=== PATIENT | female | born 1980 | race Caucasian/White ===

== ENCOUNTER 2018-06-30 10:41 | Inpatient (IN) | payer SELFPAY ==
[2018-06-30] VITALS (98 sets, daily range): BP systolic 139–151; BP diastolic 96–100; PULSE 83–96; TEMP 98.1; O2SAT 92–100
[~2018-06-30] VITALS: Ht 165.1 cm; Wt 129.8 kg
[2018-06-30 11:39] LABS: BASO # 0.1 (0.0-0.2); BASO % 0.7 % (0.0-2.0); EOS # 0.3 (0.0-0.7); EOS % 4.1 % (0-4.0); GRAN # 3.8 (1.4-6.5); GRAN % 55.1 % (42.2-75.2); HEMATOCRIT 40.5 % (37.0-47.0); LYMPH # 2.4 (1.2-3.4); LYMPH % 34.3 % (20.0-51.0); MEAN CELL VOLUME 85 fl (80.0-100.0); MEAN CORPUSCULAR HEMOGLOBIN 29 pg (27.0-31.0); MEAN CORPUSCULAR HGB CONC 35 g/dl (33.0-37.0); MEAN PLATELET VOLUME 11.4 fl (7.4-10.4); MONO # 0.4 (0.1-0.6); MONO % 5.5 % (1.7-9.3); PLATELET COUNT 240 K/mm3 (130-400); RED BLOOD COUNT 4.78 M/mm3 (4.10-5.30); REDCELL DISTRIBUTION WIDTH-CV 13.1 % (11.5-14.5)
[2018-06-30 11:53] LABS: ALBUMIN 3.8 gm/dL (3.5-5.0); BILIRUBIN,TOTAL 0.4 mg/dL (0.0-1.0); CALCIUM 9.3 mg/dL (8.4-10.2); CREATININE, serum 0.35 mg/dL (0.52-1.25); POTASSIUM 4.2 mmol/L (3.4-5.0)
[2018-06-30 13:06] LABS: COLLECTION METHOD CLEAN CATCH
[2018-06-30 13:19] LABS: PH 6 (5-8); SQUAMOUS EPITHELIAL 0-2 /hpf; URINE APPEARANCE Clear; URINE BACTERIA None Seen /hpf; URINE BILIRUBIN Negative (NEGATIVE); URINE BLOOD Negative (NEGATIVE); URINE COLOR Straw; URINE GLUCOSE 3+ (NEGATIVE); URINE KETONE Trace (NEGATIVE); URINE LEUKOCYTE ESTERASE Negative (NEGATIVE); URINE NITRATE Negative (NEGATIVE); URINE PROTEIN(semi-quant) Negative (NEGATIVE); URINE RBC 0-2 /hpf; URINE UROBILINOGEN Negative (NEGATIVE)
[2018-06-30 17:28] LABS: ARTERIAL BLD GAS O2 SATURATION 97.7 % (92-100); ARTERIAL BLD GAS TCO2 CT 22.4; ARTERIAL BLOOD GAS BASE EXCESS 0.7 (-2-2); ARTERIAL BLOOD GAS HCO3 21.6 meq/L (22-26); ARTERIAL BLOOD GAS PCO2 25.8 mmHg (35-45); ARTERIAL BLOOD GAS PO2 101.4 mmHg (80-100); ARTERIAL BLOOD GAS pH 7.54 (7.35-7.45)
[2018-06-30 17:55] LABS: CALCIUM 9.1 mg/dL (8.4-10.2); CREATININE, serum 0.38 mg/dL (0.52-1.25); POTASSIUM 3.9 mmol/L (3.4-5.0)
[2018-07-01] VITALS (292 sets, daily range): BP systolic 118–162; BP diastolic 75–95; PULSE 68–104; TEMP 97.7–98.7; O2SAT 94–100
[2018-07-01 05:54] LABS: BASO % 0.6 % (0.0-2.0); EOS # 0.3 (0.0-0.7); EOS % 4.7 % (0-4.0); GRAN # 3.4 (1.4-6.5); GRAN % 52.5 % (42.2-75.2); HEMATOCRIT 38.8 % (37.0-47.0); HEMOGLOBIN 12.9 g/dl (12.5-16.0); LYMPH # 2.4 (1.2-3.4); MEAN CELL VOLUME 87 fl (80.0-100.0); MEAN CORPUSCULAR HEMOGLOBIN 29 pg (27.0-31.0); MEAN CORPUSCULAR HGB CONC 33 g/dl (33.0-37.0); MEAN PLATELET VOLUME 11.2 fl (7.4-10.4); MONO # 0.3 (0.1-0.6); MONO % 4.9 % (1.7-9.3); PLATELET COUNT 223 K/mm3 (130-400); RED BLOOD COUNT 4.45 M/mm3 (4.10-5.30); REDCELL DISTRIBUTION WIDTH-CV 13.2 % (11.5-14.5)
[2018-07-01 06:11] LABS: ALBUMIN 3.3 gm/dL (3.5-5.0); BILIRUBIN,TOTAL 0.5 mg/dL (0.0-1.0); CALCIUM 8.4 mg/dL (8.4-10.2); CHOLESTEROL RISK RATIO 7.4; CREATININE, serum 0.39 mg/dL (0.52-1.25); POTASSIUM 3.8 mmol/L (3.4-5.0); TOTAL PROTEIN 6.2 gm/dL (6.4-8.2)
[2018-07-02 00:04] VITALS: BP 146/93; PULSE 94; TEMP 98.5
[2018-07-02 04:07] VITALS: BP 132/79; PULSE 97; TEMP 98.1
[2018-07-02 07:41] VITALS: BP 138/83; PULSE 98; TEMP 98.3
[2018-07-02 12:01] VITALS: BP 140/90; PULSE 90; TEMP 98.3
[2018-07-02] MEDS ORDERED: GLUCOTROL10 MG PO (13:38)
[2018-07-02] MEDS ORDERED: GLUCOPHAGE1000 MG PO (13:39)
== END 2018-07-02 15:02 | disposition home or self-care (01) | DRG 638 ==
LOC: COL.ER 10:41 → ICU 13:11 → MEDICAL 07-01 16:00 → ICU 07-01 16:00 → MEDICAL 07-01 16:00
PROVIDERS: Family Medicine; Nurse Practitioner Family
DX: E11.00 Type 2 diabetes mellitus with hyperosmolarity without nonketotic hyperglycemic-hyperosmolar coma (NKHHC) (principal); E87.1 Hypo-osmolality and hyponatremia; E11.65 Type 2 diabetes mellitus with hyperglycemia; F17.210 Nicotine dependence, cigarettes, uncomplicated; R74.0 Nonspecific elevation of levels of transaminase and lactic acid dehydrogenase [LDH]; R06.00 Dyspnea, unspecified
CPT/HCPCS: 99233-AI; 99239; J1650; J1815; J2405; J3010; J7030; Q9967

== ENCOUNTER → 2020-11-04 | Outpatient (CLI) | payer MEDICAID ==
[~2020-11-04] MED LIST: GLUCOPHAGE1000 MG PO; GLUCOTROL10 MG PO
== END ==
LOC: MHCPAIN 10:47
DX: M47.817 Spondylosis without myelopathy or radiculopathy, lumbosacral region (principal); M53.3 Sacrococcygeal disorders, not elsewhere classified; M54.5 Low back pain; G89.29 Other chronic pain
CPT/HCPCS: G0463

== ENCOUNTER → 2021-01-12 | Outpatient (CLI) | payer MEDICAID ==
[~2021-01-12] MED LIST changes: +CATAPRES0.2 MG PO; +NEURONTIN300 MG/CAP PO; +PRINIVIL40 MG PO
== END ==
LOC: COL.RAD 09:51
DX: M48.02 Spinal stenosis, cervical region (principal); I67.82 Cerebral ischemia; J32.0 Chronic maxillary sinusitis

== ENCOUNTER 2021-01-26 08:58 | Outpatient (CLI) | payer MEDICAID ==
[~2021-01-26] VITALS: Ht 165.1 cm; Wt 136.0 kg
[2021-01-26] VITALS (7 sets, daily range): BP systolic 144–167; BP diastolic 89–102; PULSE 87–95
[2021-01-26 10:14] LABS: CSF APPEARANCE CLEAR; CSF COLOR COLORLESS
[2021-01-26 10:15] LABS: CSF RBC 0 /mm3 (0-0)
[2021-01-26 10:21] LABS: GLUCOSE,CSF 126 mg/dL (40-70); TOTAL PROTEIN,CSF 52 mg/dL (15-45)
[2021-01-26 10:57] LABS: CSF MONONUCLEAR 100 % (70-100); CSF POLYMORPHONUCLEAR 0 % (0-6)
--- NOTE | 2021-01-26 11:20 | NUR ---
Steady gait with cane to restroom following 1 hr flat time. DC instructions reviewed, pt expresses understanding. Bandaid to lower back remains clean, dry and intact. She has tolerated PO fluids without issue. She is assisted out by wheelchair to boyfriend's car.
[2021-01-29 15:19] LABS: CSF OLIG BD INTERPRETATION 0 bands (<2); SE OLIGOCLONAL BANDING 2 bands (())
== END 2021-01-26 11:20 | disposition home or self-care (01) ==
LOC: COL.RAD 08:58
PROVIDERS: Nurse Practitioner
DX: R90.82 White matter disease, unspecified (principal); R42 Dizziness and giddiness; R20.0 Anesthesia of skin

== ENCOUNTER → 2021-02-10 | Outpatient (CLI) | payer MEDICAID | LOC: COL.CARD 12:46 | DX: R42 Dizziness and giddiness (principal); G43.019 Migraine without aura, intractable, without status migrainosus; R20.0 Anesthesia of skin ==

== ENCOUNTER 2021-06-16 13:58 | Outpatient (RCR) | payer MEDICAID | END 2021-09-14 | disposition home or self-care (01) | LOC: WSST | DX: R47.9 Unspecified speech disturbances (principal) ==

== ENCOUNTER 2023-03-05 20:56 | Emergency (ER) | payer MEDICAID ==
[~2023-03-05] VITALS: Ht 162.6 cm; Wt 127.3 kg
[2023-03-05 21:03] VITALS: TEMP 98.3
[2023-03-05 21:42] LABS: BASO % 0.4 % (0.0-2.0); EOS # 0.5 K/mm3 (0.0-0.7); EOS % 5.4 % (0.0-4.0); GRAN # 5.6 K/mm3 (1.4-6.5); HEMATOCRIT 47.1 % (37.0-47.0); HEMOGLOBIN 15.9 g/dl (12.5-16.0); LYMPH # 3.4 K/mm3 (1.2-3.4); LYMPH % 33.9 % (20.0-51.0); MEAN CELL VOLUME 95 fl (80.0-100.0); MEAN CORPUSCULAR HEMOGLOBIN 32 pg (27-31); MEAN CORPUSCULAR HGB CONC 34 g/dl (33.0-37.0); MEAN PLATELET VOLUME 10.7 fl (7.4-10.4); MONO # 0.4 K/mm3 (0.1-0.6); PLATELET COUNT 214 K/mm3 (130-400); RED BLOOD COUNT 4.94 M/mm3 (4.10-5.30); REDCELL DISTRIBUTION WIDTH-CV 12.7 % (11.5-14.5)
[2023-03-05 21:59] LABS: ALANINE AMINOTRANSFERASE 16 U/L (0-55); ALBUMIN 3.8 gm/dL (3.5-5.0); ALKALINE PHOSPHATASE 80 U/L (40-150); ANION GAP 13 mmol/L (7-16); AST,SGOT 10 U/L (5-34); BILIRUBIN,TOTAL 0.3 mg/dL (0.2-1.2); BLOOD UREA NITROGEN 7 mg/dL (7-19); CALCIUM 9.5 mg/dL (8.4-10.2); CARBON DIOXIDE 22 mmol/L (22-29); CHLORIDE 104 mmol/L (98-107); CREATININE, serum 0.66 mg/dL (0.57-1.11); GLUCOSE 232 mg/dL (70-99); POTASSIUM 3.5 mmol/L (3.5-4.5); SODIUM 139 mmol/L (136-145); TOTAL PROTEIN 7.1 gm/dL (6.2-8.1)
[2023-03-05 22:01] LABS: ACETONE,SERUM NEGATIVE
[2023-03-05 22:13] LABS: COLLECTION METHOD CLEAN CATCH
[2023-03-05 22:26] LABS: MUCOUS Present (NOT PRESENT); URINE BACTERIA Rare /hpf (NONE SEEN)
[2023-03-05 22:29] LABS: URINE APPEARANCE Clear (CLEAR/HAZY); URINE BLOOD Negative (NEGATIVE); URINE COLOR Yellow (YELLOW); URINE GLUCOSE 3+ (NEGATIVE); URINE KETONE Negative (NEGATIVE); URINE NITRATE Negative (NEGATIVE); URINE PROTEIN(semi-quant) Negative (NEGATIVE)
[2023-03-05 22:46] VITALS: BP 105/66; PULSE 88
== END 2023-03-05 22:48 | disposition home or self-care (01) ==
LOC: COL.ER 20:56
PROVIDERS: Physician Assistant
DX: R42 Dizziness and giddiness (principal); R51.9 Headache, unspecified; E66.9 Obesity, unspecified; Z68.42 Body mass index [BMI] 45.0-49.9, adult; Z86.69 Personal history of other diseases of the nervous system and sense organs
CPT/HCPCS: J1790; J1885; J2405; J7030

== ENCOUNTER 2024-03-03 21:09 | Emergency (ER) | payer MEDICAID ==
[~2024-03-03] VITALS: Ht 162.6 cm; Wt 118.2 kg
[~2024-03-03 21:09] MED LIST changes: +AMBIEN 5MG TABLE5 MG PO; +AMITRIPTYLINE H25 M1; +ASPIRIN 81M81 MG/TA2 PO; +CLARITIN 1010 MG/TAB; +CYMBALTA 60MG60 MG PO; +FARXIGA10 PO; +IBU800 M1 PO; +LANTUS100 U/ML SQ; +LIPITOR20 MG PO; +LYRICA 25MG CAP25 MG PO; +MAG-OX 400400 MG/TAB PO; +NORCO 325 MG-51 TAB; +PROTONIX 40MG T40 MG PO; +ROBAXIN 75750 MG/TAB PO; +ULTRAM 50MG TAB50 MG PO; +VALIUM 10MG10 MG/TAB; +VICTOZA6 MG/ML SQ
[2024-03-03 21:14] VITALS: TEMP 98.3
[2024-03-03 22:04] LABS: BASO % 0.4 % (0.0-2.0); EOS # 0.5 K/mm3 (0.0-0.7); EOS % 5.1 % (0.0-4.0); HEMOGLOBIN 14.9 g/dl (12.5-16.0); LYMPH # 3.3 K/mm3 (1.2-3.4); LYMPH % 31.8 % (20.0-51.0); MEAN CELL VOLUME 92 fl (80.0-100.0); MEAN CORPUSCULAR HEMOGLOBIN 32 pg (27-31); MEAN CORPUSCULAR HGB CONC 35 g/dl (33.0-37.0); MEAN PLATELET VOLUME 9.9 fl (7.4-10.4); MONO # 0.5 K/mm3 (0.1-0.6); MONO % 4.5 % (1.7-9.3); PLATELET COUNT 264 K/mm3 (130-400); RED BLOOD COUNT 4.69 M/mm3 (4.10-5.30); REDCELL DISTRIBUTION WIDTH-CV 12.4 % (11.5-14.5)
[2024-03-03 22:20] LABS: ERYTHROCYTE SEDIMENTATION RATE 10 mm/hr (0-20)
[2024-03-03 22:28] LABS: ALBUMIN 3.4 g/dL (3.5-5.0); BILIRUBIN,TOTAL 0.3 mg/dL (0.2-1.2); C-REACTIVE PROTEIN 1.59 mg/dL (0.00-0.50); CALCIUM 9.3 mg/dL (8.4-10.2); CREATININE, serum 0.7 mg/dL (0.57-1.11); POTASSIUM 3.6 mEq/L (3.5-4.5); TOTAL PROTEIN 6.7 g/dl (6.2-8.1)
[2024-03-03 23:29] VITALS: BP 133/77; PULSE 83
== END 2024-03-03 23:32 | disposition home or self-care (01) ==
LOC: COL.ER 21:09
PROVIDERS: Emergency Medicine
DX: T81.31XA Disruption of external operation (surgical) wound, not elsewhere classified, initial encounter (principal); E11.65 Type 2 diabetes mellitus with hyperglycemia; L03.116 Cellulitis of left lower limb; F17.210 Nicotine dependence, cigarettes, uncomplicated; Z79.4 Long term (current) use of insulin

== ENCOUNTER 2024-08-12 12:49 | Emergency (ER) | payer MEDICAID ==
[~2024-08-12] VITALS: Ht 162.6 cm; Wt 122.7 kg
[2024-08-12 12:59] VITALS: TEMP 98.3
[2024-08-12] MEDS ORDERED: HYDROcodone/Acetaminophen 7.5-325 MG TAB PO ONE (13:30)
[2024-08-12] MEDS ORDERED: NS 1,000 ML IV ONE (13:30)
[2024-08-12 13:35] LABS: BASO % 0.4 % (0.0-2.0); EOS # 0.4 K/mm3 (0.0-0.7); EOS % 3.9 % (0.0-4.0); GRAN # 6.2 K/mm3 (1.4-6.5); GRAN % 63.4 % (42.2-75.2); HEMATOCRIT 44.7 % (37.0-47.0); HEMOGLOBIN 15.7 g/dl (12.5-16.0); LYMPH # 2.7 K/mm3 (1.2-3.4); LYMPH % 27.6 % (20.0-51.0); MEAN CELL VOLUME 92 fl (80.0-100.0); MEAN CORPUSCULAR HEMOGLOBIN 32 pg (27-31); MEAN CORPUSCULAR HGB CONC 35 g/dl (33.0-37.0); MEAN PLATELET VOLUME 10.4 fl (7.4-10.4); MONO # 0.4 K/mm3 (0.1-0.6); MONO % 4.4 % (1.7-9.3); PLATELET COUNT 239 K/mm3 (130-400); RED BLOOD COUNT 4.87 M/mm3 (4.10-5.30); REDCELL DISTRIBUTION WIDTH-CV 12.2 % (11.5-14.5)
[2024-08-12 13:53] LABS: ERYTHROCYTE SEDIMENTATION RATE 35 mm/hr (0-20)
[2024-08-12 13:55] LABS: ALBUMIN 3.9 g/dL (3.5-5.0); BILIRUBIN,TOTAL 0.6 mg/dL (0.2-1.2); C-REACTIVE PROTEIN 7.21 mg/dL (0.00-0.50); CREATININE, serum 0.66 mg/dL (0.57-1.11); POTASSIUM 3.7 mEq/L (3.5-4.5); TOTAL PROTEIN 7.4 g/dl (6.2-8.1)
[2024-08-12] MEDS ORDERED: Doxycycline Hyclate 100 MG in NS 150 ML IV ONE (14:30)
[2024-08-12] MEDS ORDERED: DOXYCYCLINE HY100 MG PO (16:11)
[2024-08-12] MEDS ORDERED: ceFAZolin 2 G in Water For Injection,Sterile 20 ML IV ONE (16:30)
[2024-08-12] MEDS ORDERED: Home HYDROcodone/Acetaminophen 5/325 MG #4 TABS/PACK PO ONE (17:30)
[2024-08-12 18:00] VITALS: BP 140/80; PULSE 92
== END 2024-08-12 18:00 | disposition home or self-care (01) ==
LOC: COL.ER 12:49
PROVIDERS: Emergency Medicine
DX: L03.116 Cellulitis of left lower limb (principal); F17.210 Nicotine dependence, cigarettes, uncomplicated
CPT/HCPCS: J0688; J7030